=== PATIENT | male | born 1960 | race Caucasian/White ===

== ENCOUNTER 2019-06-03 15:48 | Emergency (ER) | payer OTHER ==
[2019-06-03] MEDS ORDERED: Lidocaine 1% 10 ML MDV ONE (16:30)
--- NOTE | 2019-06-03 21:22 | ER ---
REASON FOR EMERGENCY ROOM VISIT: [place] impaled in the left thumb. HISTORY: This 58-year-old man accidentally impaled a treble hook from a fishing lure in the volar aspect of his distal phalanx of his left thumb. He cut the hook away from the lure and came into the ER with a stub of the hook protruding from the surface of the skin. The patient's last tetanus toxoid was in 2016. PAST MEDICAL HISTORY: Unremarkable. REVIEW OF SYSTEMS: Unremarkable. PHYSICAL EXAMINATION: He has a hook protruding from the volar aspect of the distal phalanx of his left thumb. Distal sensation is intact with good capillary refill. IMPRESSION: Foreign body (fishhook in left thumb). FURTHER EMERGENCY ROOM COURSE: The thumb was prepped with Hibiclens and anesthetized with a couple of mL of 1% Xylocaine without epinephrine. Once this was done, I was able to drive the hook completely through and pull it out without using the push technique. This was done without any difficulties. The thumb was dressed, and he was instructed regarding cares as well as symptoms and signs of infection. PLAN: He should follow up as needed. He does not need his tetanus toxoid as his last booster was in 2016. All questions were answered. He understands and agrees. MAGGIE/LAUREN /[id number]
== END 2019-06-03 16:45 | disposition home or self-care (01) ==
LOC: LB.ED 15:48
DX: S60.351A Superficial foreign body of right thumb, initial encounter (principal); W45.8XXA Other foreign body or object entering through skin, initial encounter
CPT/HCPCS: 99283; J2001